=== PATIENT | female | born 1980 ===

== ENCOUNTER 2024-06-16 15:42 | Emergency (ER) | payer BC, OTHER ==
[2024-06-16] MEDS ORDERED: EPINEPHrine 1 MG/ML SDV ONE (15:46)
[2024-06-16] MEDS: EPINEPHrine 1 MG/ML SDV SUBCUT ONE (15:49)
[2024-06-16] MEDS ORDERED: EPINEPHrine 1 MG/ML SDV IM ONE (15:52)
[2024-06-16] MEDS: Dexamethasone 4 MG/ML SDV IVPUSH ONE (15:54)
[2024-06-16] MEDS: Sodium Chloride 0.9% 1,000 ML IV ONE (15:55)
[2024-06-16] MEDS: diphenhydrAMINE 50 MG/ML SDV IVPUSH ONE (15:55)
[2024-06-16] MEDS: Famotidine 20 MG/2 ML SDV IVPUSH ONE (15:55)
== END 2024-06-16 17:54 | disposition home or self-care (01) ==
LOC: DL.ED 15:42
DX: T63.461A Toxic effect of venom of wasps, accidental (unintentional), initial encounter (principal); R06.02 Shortness of breath
CPT/HCPCS: 96361; 96372; 96374; 96375; 99282; 99284-25; J0171; J1100; J1200; J3490; J7030